=== PATIENT | male | born 1980 | race Caucasian/White ===

== ENCOUNTER 2025-01-14 17:20 | Outpatient (CLI) | payer OTHER, SELFPAY | END 2025-01-14 17:21 | disposition home or self-care (01) | LOC: AMB 01-15 11:49 | PROVIDERS: Visit Provider Student in an Organized Health Care Education/Training Program | DX: S89.92XA Unspecified injury of left lower leg, initial encounter (principal); V49.40XA Driver injured in collision with unspecified motor vehicles in traffic accident, initial encounter; Y92.410 Unspecified street and highway as the place of occurrence of the external cause | CPT/HCPCS: A0998 ==